=== PATIENT | female | born 1975 | race Caucasian/White ===

== ENCOUNTER 2023-05-27 04:08 | Day surgery (SDC) | payer OTHER ==
[2023-05-20 11:44] VITALS: BMI 28.5
[2023-05-27] MEDS ORDERED: BUPIVACAINE HCL/PF 0.25% (2.5MG/ML) 10 ML VIAL ONE (07:21)
[2023-05-27] MEDS ORDERED: ONDANSETRON 4 MG/2 ML VIAL ONE (07:49)
[2023-05-27] MEDS ORDERED: DEXAMETHASONE SOD PHOSPHATE 4 MG/1 ML VIAL ONE (07:49)
[2023-05-27] MEDS ORDERED: GLYCOPYRROLATE 0.2 MG/1 ML VIAL ONE (07:49)
[2023-05-27] MEDS ORDERED: cefOXitin SODIUM 2 GM VIAL (RESTRICTED TO ID) IVPB ONE (07:50)
[2023-05-27] MEDS ORDERED: NEOSTIGMINE METHYLSULFATE 0.5 MG/1 ML - 10 ML MDV ONE (07:50)
[2023-05-27] MEDS ORDERED: MIDAZOLAM HCL 2 MG/2 ML SINGLE DOSE VIAL ONE (07:50)
[2023-05-27] MEDS ORDERED: HEPARIN NA (PORCINE) 5,000 UNITS/ML 1ML VIAL ONE ×2 (07:50→07:53)
[2023-05-27] MEDS ORDERED: ROCURONIUM BROMIDE 50 MG/5 ML SYRINGE ONE ×2 (07:50→09:16)
[2023-05-27] MEDS ORDERED: PROPOFOL 40 ML ONE (07:50)
[2023-05-27] MEDS: cefOXitin SODIUM 1 GM VIAL (RESTRICTED TO ID) IVPB ONE (08:12)
[2023-05-27] MEDS: HEPARIN NA (PORCINE) 5,000 UNITS/ML 1ML VIAL SQ ONE (08:16)
[2023-05-27] MEDS: BUPIVACAINE HCL/PF 0.25% (2.5MG/ML) 10 ML VIAL IJ ONE (08:39)
[2023-05-27] MEDS ORDERED: PROPOFOL 20 ML ONE (09:15)
[2023-05-27] MEDS ORDERED: oxyCODONE HCL 5 MG TABLET PO PRN (10:57)
[2023-05-27] MEDS ORDERED: ONDANSETRON 4 MG/2 ML VIAL IVPUSH PRN (10:57)
[2023-05-27] MEDS ORDERED: LACTATED RINGERS SOLUTION 1,000 ML IV SCH (11:00)
[2023-05-27 12:15] VITALS: BP 121/81; PULSE 78; RESP 18; TEMP 97.8
== END 2023-05-27 13:19 | disposition home or self-care (01) ==
LOC: JASU-SURG 04:08 → EDBD 10:30 → JASU-SURG 13:19
PROVIDERS: ATTEND Surgery
PROC: 0FT44ZZ Resection of Gallbladder, Percutaneous Endoscopic Approach (ICD-10-PCS; principal; 2023-05-27 08:00)
DX: K81.1 Chronic cholecystitis (principal)
CPT/HCPCS: 81025; 86850; 86900; 86901; 88304-TC; 94760; J1644